=== PATIENT | female | born 1990 | race Caucasian/White ===

== ENCOUNTER 2016-07-08 06:36 | Inpatient (IN) | payer BC ==
[~2016-07-08] VITALS: Ht 175.3 cm; Wt 103.9 kg
[2016-07-08 06:57] VITALS: BP 138/65
[2016-07-08] MEDS ORDERED: OXYTOCIN 30 UNITS/LACT RINGERS 500 ML IV ONE (07:28)
[2016-07-08] MEDS ORDERED: RINGERS SOLUTION,LACTATED 1,000 ML IV PRN (07:28)
[2016-07-08] MEDS ORDERED: RINGERS SOLUTION,LACTATED 1,000 ML IV SCH (07:28)
[2016-07-08] MEDS ORDERED: LIDOCAINE HCL/PF 1% 30 ML VIAL INJ PRN (07:30)
[2016-07-08] MEDS ORDERED: METOCLOPRAMIDE HCL 5 MG/ML 2 ML VIAL IVP PRN (07:30)
[2016-07-08] MEDS ORDERED: CITRIC ACID/SODIUM CITRATE 30 ML SOLUTION UDCUP PO PRN (07:30)
[2016-07-08] MEDS ORDERED: FentaNYL CITRATE-PF 100 MCG/2 ML VIAL IVP PRN (07:30)
[2016-07-08] MEDS ORDERED: OXYGEN THERAPY IH SCH (08:00)
[2016-07-08 08:29] LABS: BASOPHILS % (AUTO) 0.5 % (0.0-2.0); EOSINOPHILS % (AUTO) 0.7 % (1.0-6.0); HEMOGLOBIN 11.9 g/dL (12.0-16.0); LYMPHOCYTES # (AUTO) 1.8 K/uL (1.0-4.8); MEAN CORPUSCULAR HEMOGLOBIN 27.6 pg (26.0-34.0); MEAN CORPUSCULAR HGB CONC 33.1 G/dL (31.0-37.0); MEAN CORPUSCULAR VOLUME 83 fL (80-100); MONOCYTES # (AUTO) 0.6 K/uL (0.1-1.0); MONOCYTES % (AUTO) 6.5 % (2.0-9.0); NEUTROPHILS # (AUTO) 6.6 K/uL (1.8-7.7); NEUTROPHILS % (AUTO) 72.3 % (40.0-70.0); RED BLOOD CELL COUNT(AUTO) 4.32 MIL/uL (4.00-5.20); WHITE BLOOD COUNT (AUTO) 9.1 K/uL (4.5-11.0)
[2016-07-08] MEDS ORDERED: OXYTOCIN 30 UNITS/LACT RINGERS 500 ML IV PRN (10:35)
[2016-07-08] MEDS ORDERED: INFLUENZA VIRUS VACCINE QVS 2016-17 (3YR+)/PF 60 MCG/0.5 ML SYRINGE IM ONE (11:15)
[2016-07-08] MEDS ORDERED: OXYTOCIN 20 UNITS in RINGERS SOLUTION,LACTATED 1,000 ML IV SCH (17:08)
[2016-07-08] MEDS ORDERED: OXYTOCIN 20 UNITS in RINGERS SOLUTION,LACTATED 1,000 ML IV ONE (17:11)
[2016-07-08] MEDS ORDERED: OxyCODONE HCL/ACETAMINOPHEN 5-325 MG TABLET PO PRN (17:15)
[2016-07-08] MEDS ORDERED: BENZOCAINE 20%/MENTHOL 56 GM SPRAY CANISTER TP PRN (17:15)
[2016-07-08] MEDS ORDERED: GLYCERIN/WITCH HAZEL LEAF 40 PADS JAR TP PRN (17:15)
[2016-07-08] MEDS ORDERED: MEASLES/MUMPS/RUBELLA VACCINE, LIVE 0.5 ML/VIAL SQ ONE (17:15)
[2016-07-08] MEDS ORDERED: METHYLERGONOVINE MALEATE 0.2 MG/ML VIAL IM ONE (17:30)
[2016-07-08] MEDS: MAGNESIUM HYDROXIDE SUSPENSION 30 ML UDCUP PO PRN (21:26)
[2016-07-08] MEDS: SENNA/DOCUSATE SODIUM 187-50 MG TABLET PO PRN (21:26)
[2016-07-08] MEDS: OxyCODONE HCL/ACETAMINOPHEN 5-325 MG TABLET PO PRN (21:33)
[2016-07-08] MEDS: METHYLERGONOVINE MALEATE 0.2 MG TABLET PO SCH (23:42)
[2016-07-09] MEDS: OxyCODONE HCL/ACETAMINOPHEN 5-325 MG TABLET PO PRN (05:33)
[2016-07-09] MEDS: METHYLERGONOVINE MALEATE 0.2 MG TABLET PO SCH ×2 (06:04→12:02)
[2016-07-09 06:34] LABS: BASOPHILS % (AUTO) 0.2 % (0.0-2.0); EOSINOPHILS % (AUTO) 0.6 % (1.0-6.0); HEMATOCRIT 31.7 % (36-46); HEMOGLOBIN 10.3 g/dL (12.0-16.0); LYMPHOCYTES # (AUTO) 2.3 K/uL (1.0-4.8); LYMPHOCYTES % (AUTO) 15.9 % (22.0-44.0); MEAN CORPUSCULAR HEMOGLOBIN 27.6 pg (26.0-34.0); MEAN CORPUSCULAR HGB CONC 32.6 G/dL (31.0-37.0); MEAN CORPUSCULAR VOLUME 85 fL (80-100); MONOCYTES # (AUTO) 0.9 K/uL (0.1-1.0); NEUTROPHILS # (AUTO) 11.2 K/uL (1.8-7.7); NEUTROPHILS % (AUTO) 77.3 % (40.0-70.0); RED BLOOD CELL COUNT(AUTO) 3.74 MIL/uL (4.00-5.20); RED CELL DISTRIBUTION WIDTH 13.9 % (11.5-14.5); WHITE BLOOD COUNT (AUTO) 14.5 K/uL (4.5-11.0)
[2016-07-09] MEDS: SENNA/DOCUSATE SODIUM 187-50 MG TABLET PO PRN (07:44)
[2016-07-09] MEDS: IBUPROFEN 800 MG TABLET PO PRN ×2 (07:44→17:01)
[2016-07-09] MEDS: MAGNESIUM HYDROXIDE SUSPENSION 30 ML UDCUP PO PRN (07:44)
[2016-07-09] MEDS ORDERED: IBUP-2070 PO (13:49)
[2016-07-09] MEDS ORDERED: FERR-89 PO (13:49)
== END 2016-07-09 17:30 | disposition home or self-care (01) | DRG 775 ==
LOC: INTOOBSV 06:36 → 4S 06:36 → OBSVTOIN 06:36
PROVIDERS: ADMIT Obstetrics & Gynecology; ATTEND Obstetrics & Gynecology
PROC: 10E0XZZ Delivery of Products of Conception, External Approach (ICD-10-PCS; principal; 2016-07-08)
PROC: 0W8NXZZ Division of Female Perineum, External Approach (ICD-10-PCS; 2016-07-08)
PROC: 3E0234Z Introduction of Serum, Toxoid and Vaccine into Muscle, Percutaneous Approach (ICD-10-PCS; 2016-07-08)
DX: O80 Encounter for full-term uncomplicated delivery (principal); Z3A.40 40 weeks gestation of pregnancy; Z37.0 Single live birth; Z23 Encounter for immunization
CPT/HCPCS: 86850; 86900; 86901; 90471; J2210; J2590; J3490; J7120

== ENCOUNTER 2018-01-23 07:16 | Inpatient (IN) | payer SELFPAY ==
[~2018-01-23] VITALS: Ht 170.2 cm; Wt 100.7 kg
[~2018-01-23 07:16] MED LIST: FERR-89 PO; IBUP-2070 PO
[2018-01-23] MEDS ORDERED: OXYTOCIN 30 UNITS/LACT RINGERS 500 ML IV ONE (08:08)
[2018-01-23] MEDS ORDERED: RINGERS SOLUTION,LACTATED 1,000 ML IV ONE (08:08)
[2018-01-23] MEDS ORDERED: RINGERS SOLUTION,LACTATED 1,000 ML IV SCH (08:08)
[2018-01-23] MEDS ORDERED: LIDOCAINE/PF 1% 30 ML VIAL INJ PRN (08:15)
[2018-01-23] MEDS ORDERED: METOCLOPRAMIDE HCL 5 MG/ML 2 ML VIAL IVP PRN (08:15)
[2018-01-23] MEDS ORDERED: MISOPROSTOL 25 MCG TABLET PR ONE (08:15)
[2018-01-23] MEDS ORDERED: METHYLERGONOVINE MALEATE 0.2 MG/ML VIAL IM PRN (08:15)
[2018-01-23] MEDS ORDERED: CITRIC ACID/SODIUM CITRATE 30 ML SOLUTION UDCUP PO PRN (08:15)
[2018-01-23 08:30] VITALS: BP 141/87
[2018-01-23 08:48] LABS: BASOPHILS % (AUTO) 0.5 % (0.0-2.0); EOSINOPHILS % (AUTO) 0.2 % (1.0-6.0); HEMATOCRIT 34.7 % (36-46); HEMOGLOBIN 11.5 g/dL (12.0-16.0); LYMPHOCYTES # (AUTO) 1.1 K/uL (1.0-4.8); LYMPHOCYTES % (AUTO) 9.8 % (22.0-44.0); MEAN CORPUSCULAR HEMOGLOBIN 24.8 pg (26.0-34.0); MEAN CORPUSCULAR HGB CONC 33.1 G/dL (31.0-37.0); MEAN CORPUSCULAR VOLUME 75 fL (80-100); MONOCYTES # (AUTO) 0.4 K/uL (0.1-1.0); MONOCYTES % (AUTO) 3.3 % (2.0-9.0); PLATELET COUNT (AUTO)-OB 243 K/uL (150-450); RED BLOOD CELL COUNT(AUTO) 4.63 MIL/uL (4.00-5.20); RED CELL DISTRIBUTION WIDTH 15.4 % (11.5-14.5)
[2018-01-23 08:49] LABS: NEUTROPHILS % (AUTO) 86.2 % (40.0-70.0)
[2018-01-23] MEDS ORDERED: LANOLIN 7 GM OINTMENT TP PRN (11:15)
[2018-01-23] MEDS ORDERED: GLYCERIN/WITCH HAZEL LEAF 40 PADS JAR TP PRN (11:15)
[2018-01-23] MEDS ORDERED: MAGNESIUM HYDROXIDE SUSPENSION 30 ML UDCUP PO PRN (11:15)
[2018-01-23] MEDS ORDERED: OxyCODONE HCL/ACETAMINOPHEN 5-325 MG TABLET PO PRN (11:15)
[2018-01-23] MEDS: IBUPROFEN 800 MG TABLET PO PRN ×2 (11:45→21:42)
[2018-01-23 17:14] LABS: RUBELLA SCREEN (IGG) IMMUNE (IMMUNE)
[2018-01-24] MEDS: IBUPROFEN 800 MG TABLET PO PRN (04:28)
[2018-01-24 05:24] LABS: BASOPHILS % (AUTO) 0.5 % (0.0-2.0); EOSINOPHILS % (AUTO) 0.7 % (1.0-6.0); HEMATOCRIT 30.3 % (36-46); HEMOGLOBIN 10.3 g/dL (12.0-16.0); LYMPHOCYTES # (AUTO) 2.2 K/uL (1.0-4.8); LYMPHOCYTES % (AUTO) 22.3 % (22.0-44.0); MEAN CORPUSCULAR HEMOGLOBIN 25.8 pg (26.0-34.0); MEAN CORPUSCULAR VOLUME 76 fL (80-100); MONOCYTES # (AUTO) 0.4 K/uL (0.1-1.0); MONOCYTES % (AUTO) 4.6 % (2.0-9.0); NEUTROPHILS % (AUTO) 71.9 % (40.0-70.0); PLATELET COUNT (AUTO)-OB 243 K/uL (150-450); RED BLOOD CELL COUNT(AUTO) 3.99 MIL/uL (4.00-5.20); RED CELL DISTRIBUTION WIDTH 15.2 % (11.5-14.5)
== END 2018-01-24 13:00 | disposition home or self-care (01) | DRG 807 ==
LOC: 4S 07:16 → OBSVTOIN 07:16
PROVIDERS: ADMIT Obstetrics & Gynecology; ATTEND Obstetrics & Gynecology
PROC: 10E0XZZ Delivery of Products of Conception, External Approach (ICD-10-PCS; principal; 2018-01-23)
PROC: 0HQ9XZZ Repair Perineum Skin, External Approach (ICD-10-PCS; 2018-01-23)
DX: O69.81X0 Labor and delivery complicated by cord around neck, without compression, not applicable or unspecified (principal); Z37.0 Single live birth; O70.0 First degree perineal laceration during delivery; O77.0 Labor and delivery complicated by meconium in amniotic fluid; Z3A.38 38 weeks gestation of pregnancy
CPT/HCPCS: 80307; 86592; 86762; 86850; 86900; 86901; 87340; J2590; J3490; J7120